=== PATIENT | female | born 1945 | race Caucasian/White ===

== ENCOUNTER → 2022-07-20 | Outpatient (CLI) | payer OTHER | END | disposition home or self-care (01) | LOC: RAD 11:23 | PROVIDERS: ATTEND Emergency Medicine | DX: M19.012 Primary osteoarthritis, left shoulder (principal); M19.011 Primary osteoarthritis, right shoulder; M11.212 Other chondrocalcinosis, left shoulder; M11.211 Other chondrocalcinosis, right shoulder; M85.812 Other specified disorders of bone density and structure, left shoulder; M85.811 Other specified disorders of bone density and structure, right shoulder ==